=== PATIENT | female | born 1990 | race Native Hawaiian/Other Pacific Islander ===

== ENCOUNTER 2018-11-25 20:52 | Emergency (ER) | payer OTHER, SELFPAY ==
[2018-11-25 21:03] VITALS: BP 132/105; PULSE 106; RESP 21; TEMP 37.2; O2SAT 99; BMI 32.4
--- NOTE | 2018-11-25 21:36 | ED_ITS ---
HPI - Skin/Abscess/Foreign Bdy General Chief complaint: Skin/Abscess/Foreign Body Stated complaint: rash on right arm, spreading Time Seen by Provider: 11/25/18 21:14 Source: patient Mode of arrival: Ambulatory Limitations: no limitations History of Present Illness HPI narrative: 28-year-old female who approximately 1 week ago was and why a swimming when she felt a sting on her right hand. She is unsure exactly what happened. Did not see any aquatic life at the time. Since then has had increasing pain and irritation the right hand. States that over the past couple days at a seems to have moved up her right arm. No problems breathing. Has not tried anything for the symptoms prior to arrival. No fevers. States that it is extremely itchy. Related Data Previous Rx's Medication Instructions Recorded prednisone 40 mg PO DAILY 4 Days #8 tab 11/25/18 Allergies Allergy/AdvReac Type Severity Reaction Status Date / Time No Known Drug Allergies Allergy Verified 10/07/18 11:41 Review of Systems Constitutional Constitutional: Denies fever(s) Cardiovascular Cardiovascular: Denies chest pain and Denies dyspnea Respiratory Respiratory: Denies dyspnea Gastrointestinal Gastrointestinal: Denies abdominal pain Integumentary/Breasts Comments: Rash on the right hand and right arm Neurologic Comments: Tingling to right arm Hematologic/Lymphatic Hematologic/Lymphatic: Denies easy bleeding and Denies easy bruising [facility] Medical History Patient denies medical problems (Acute) Social History Smoking Status: Never smoker Social History Smoking Status: Never smoker Exam Initial Vital Signs Initial Vital Signs: Vital Signs Temperature 99.0 F 11/25/18 21:03 Pulse Rate 106 H 11/25/18 21:03 Respiratory Rate 21 11/25/18 21:03 Blood Pressure 132/105 H 11/25/18 21:03 Pulse Oximetry 99 11/25/18 21:03 Const General: cooperative, comfortable and well developed Orientation: alert, awake and oriented x3 HENMT Head: normal to inspection and normocephalic Resp Effort & Inspection: normal respiratory effort Auscultation: clear to auscultation bilaterally Cardio Rate: regular rate Rhythm: regular rhythm Pulses: radial pulses present on the right Skin Other: Patient with linear blisters mostly on the dorsum of the right hand and also extending up the volar aspect of the distal forearm. Patient also has 2 areas of urticaria on the right upper arm and 2 areas of urticaria on the right upper back. Neuro General: alert and awake Cognition: normal cognition Speech: speech normal Gait: normal gait Course Orders Ordered: Discontinued Medications Diphenhydramine HCl (Benadryl) 25 mg PO NOW ONE Stop: 11/25/18 21:33 Last Admin: 11/25/18 21:52 Dose: 25 mg Documented by: ALMA Lidocaine/Prilocaine (Lidocaine-Prilocaine Cream) 5 gm TOP NOW ONE Stop: 11/25/18 21:33 Last Admin: 11/25/18 21:51 Dose: 5 gm Documented by: ALMA Prednisone (Deltasone) 40 mg PO NOW ONE Stop: 11/25/18 21:33 Last Admin: 11/25/18 21:52 Dose: 40 mg Documented by: ALMA Vital Signs Vital signs: Vital Signs - 8 hr 11/25/18 21:03 11/25/18 22:08 Temperature 99.0 F Pulse Rate 106 H 78 Respiratory Rate 21 12 Blood Pressure 132/105 H Blood Pressure [Right Arm] 135/98 H Pulse Oximetry 99 100 MDM - Skin/Abscess/Foreign Bdy MDM Narrative Medical decision making narrative: The markings on the back of the right hand would be consistent with a jellyfish sting. They are in a linear format. The markings on her right distal forearm could also be related to this as well. However these did form a couple days after the lesions on the back of her right hand. There is no signs of a superficial cellulitis. She has no signs of an anaphylactic reaction. Will start the patient on prednisone. She was also given topical lidocaine cream. We also discussed the use of Benadryl. We will hold on further workup for now. I expect this will improve with the steroids. She was given return precautions and follow-up instructions. She expressed understanding and agreement with plan. Discharge Plan Departure Patient Disposition: Home Clinical Impression: Rash Discharge Date/Time: 11/25/18 22:09 Instructions: DI for Rash Activity Restrictions/Additional Instructions: You were given your 1st dose of steroids here in the emergency department. Your 2nd dose will be tomorrow 11/26/18. You can also take Benadryl which he can buy [id number] as directed. You can also use topical anti-itch cream. You can buy this [id number] as well. Contact your primary doctor tomorrow for follow-up. Return to the emergency department for any new or worsening symptoms Prescriptions: New prednisone 20 mg tablet 40 mg PO DAILY 4 Days Qty: 8 RF: 0
[2018-11-25] MEDS: LIDOCAINE/PRILOCAINE 5 GM TOP (21:51)
[2018-11-25] MEDS: diphenhydrAMINE 25 MG TABLET PO (21:52)
[2018-11-25] MEDS: predniSONE 20 MG TABLET 40 MG PO (21:52)
[2018-11-25 22:08] VITALS: BP 135/98; PULSE 78; RESP 12; O2SAT 100
== END 2018-11-25 22:09 | disposition home or self-care (01) ==
PROVIDERS: Emergency Provider Emergency Medicine
DX: R21 Rash and other nonspecific skin eruption (principal)
CPT/HCPCS: 99282; 99283

== ENCOUNTER → 2019-10-21 10:39 | Outpatient (CLI) | payer OTHER, SELFPAY ==
--- NOTE | 2019-10-21 | DI.US.S_ITS ---
PROCEDURE: US OB <= 14 WEEKS FETUS INDICATIONS: DATES OUTSIDE/PRIOR DATING DATA: Last menstrual period (LMP): 09/02/19. LMP-based estimated date of delivery (SOHAIL): 06/18/20 . First dating scan (date and location): 10/21/19, this study . Estimated date of delivery (SOHAIL) from first dating scan: 06/07/20 . TECHNIQUE: Real-time scanning was performed of the fetus and maternal pelvic organs, with image documentation. Endovaginal scanning was also performed to better visualize the fetus and maternal ovaries. COMPARISON: None. FINDINGS: Embryo: [place]-rump length 1.0 cm correlates with a gestational age of 7 weeks 1 day, +/-5 days. Heart rate 139 beats per minute is observed. There is a perigestational fluid collection measuring only 1.4 x 0.4 x 2.4 cm, likely a subchorionic small hemorrhage. Measurement variability in dating: +/- 4 weeks by LMP, +/- 7 days by mean sac diameter (use before 6 weeks gestation if crown-rump length not able to be measured), +/- 5 days by crown-rump length (up to 8 weeks 6 days gestation), +/- 7 days by crown-rump length (up to 13 weeks 6 days gestation). Maternal organs: Ovaries appear normal considering gestational status. Limited images through the kidneys demonstrate no hydronephrosis. IMPRESSION: Single living intrauterine gestation with current gestational age of 7 weeks 1 day and delivery date projected to be centered on 06/07/20, +/-5 days. Small perigestational hemorrhage incidentally noted as described above. Dictated by: Reji Muse M.D. on 10/21/2019 at 11:30 Approved by: Reji Muse M.D. on 10/21/2019 at 11:32
== END ==
PROVIDERS: Referring Provider Family Medicine; Visit Provider Family Medicine
DX: Z36.87 Encounter for antenatal screening for uncertain dates (principal); Z3A.01 Less than 8 weeks gestation of pregnancy
CPT/HCPCS: 76801; 76817

== ENCOUNTER → 2020-01-17 07:09 | Outpatient (CLI) | payer OTHER, SELFPAY ==
--- NOTE | 2020-01-17 | DI.US.S_ITS ---
PROCEDURE: US OB >= 14 WEEKS FETUS INDICATIONS: ANATOMY OUTSIDE/PRIOR DATING DATA: Last menstrual period (LMP): 09/02/2019. LMP-based estimated date of delivery (SOHAIL): 06/08/2020 . First dating scan (date and location): 10/21/2019 . Estimated date of delivery (SOHAIL) from first dating scan: 06/07/2020 . TECHNIQUE: Real-time scanning was performed of the fetus, with image documentation and biometric measurements. Endovaginal scanning: No COMPARISON: [facility], OB <= 14 WEEKS FETUS, 10/21/2019, 11:07. FINDINGS: General: A single living intrauterine gestation is present. Presentation: Transverse. Placenta: Placental position is anterior , without previa. Amniotic fluid index: 15.5 cm cm, normal range is 5-24 cm. heart rate: 144 beats per minute. Maternal cervical canal: 4.4 cm long. Normal lower limit is 2.5 cm. biometrics: Biparietal diameter: 19 weeks 5 Head circumference: 19 weeks 4 days Abdominal circumference: 20 weeks 4 days Femur length: 19 weeks 4 days Estimated gestational age from initial scan: 19 weeks 5 days Composite gestational age from present scan: 19 weeks 6 days Estimated weight and percentile: 329 g; 65th percentile Measurement variability for biometric dating: +/- 7 days from 14 weeks to 15 weeks 6 days gestation, +/- 10 days from 16 weeks to 21 weeks 6 days gestation, +/- 2 weeks from 22 weeks to 27 weeks 6 days gestation, +/- 3 weeks for 28 weeks gestation or later. weight reference: 4500 g or EFW >90/95% is considered macrosomia or large for gestational age. EFW <10% is small for gestational age. EFW 5% or less is considered intra-uterine growth restriction. Anatomic survey: Neuro: Ventricles are non-dilated at less than 10 mm. Cisterna magna is normal at 3-11 mm. Cerebellum is normal in size and morphology. Nuchal skin fold: Normal at less than 6 mm between 14-21 weeks gestational age. Face: Nose and lips, facial profile are normal. Spine: No evidence for spina bifida. Heart: 4-chambered heart is present, with normal ventricular outflow tracts. Diaphragm: Diaphragm is intact. Stomach: Left-sided stomach is present. Kidneys: No hydronephrosis. Normal is less than 5 mm in 2nd trimester, less than 7 mm in 3rd trimester. Cord: 3-vessel cord has orthotopic insertion. Bladder: Normal in size. Extremities: All 4 extremities identified. IMPRESSION: 1. Single living IUP redemonstrated and interval growth is normal. 2. Normal anatomic survey. Dictated by: Ruben Olmedo [facility] Interpreted: Curtis Mccoy MD on 01/17/2020 at 8:43 Approved by: Curtis Mccoy M.D. on 01/17/2020 at 9:02
== END ==
PROVIDERS: PCP Family Medicine; Referring Provider Family Medicine; Visit Provider Family Medicine
DX: Z36.89 Encounter for other specified antenatal screening (principal); Z3A.19 19 weeks gestation of pregnancy
CPT/HCPCS: 76811

== ENCOUNTER 2020-04-16 08:15 | Outpatient (RCR) | payer OTHER, SELFPAY ==
--- NOTE | 2020-04-10 16:00 | PT.OIE ---
Current Diagnoses Sacroiliitis, not elsewhere classified (04/10/20) Low back pain (04/10/20) Encounter for supervision of normal first , unspecified trimester (04/10/20) Past Medical History (Last Reviewed 11/26/18 @ 00:03 by Tao Benitez DO) Patient denies medical problems Visit Care Team Role Provider Type Rahel Rowell MD Attending Provider Physician Primary Care Provider Referring Provider Specialty: [facility] Address: [address] [place] [address], [facility] [place], [facility] Email: [email or web address] Physical Therapy Initial Evaluation PT-OP-A Visit Information Start: 04/10/20 13:25 Freq: Status: Active Protocol: Document 04/10/20 13:30 AMB (Rec: 04/10/20 15:43 AMB [id number]) Out-Patient Physical Therapy Visit Information Visit Information Visit Type Initial Evaluation Visit Start Time 13:30 Visit Stop Time 14:15 Total Visit Minutes 45 Visit Number 1 PT-OP-B Current Condition Start: 04/10/20 13:25 Freq: Status: Active Protocol: Document 04/10/20 13:33 AMB (Rec: 04/10/20 15:05 AMB [id number]) Current Condition History of Current Condition Onset Date Insidious onset over last few weeks Current Complaints Groin/back pain, L hip History of Current Condition Pain has been worsening over the past few weeks. Bad nausea, pain doesn't get better in bed. Maybe a little tingling in lower legs and feet - all over, not just posterior or anterior leg. Denies weakness. 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 Treatment Goals Patient/Caregiver Goals Sit<>stand goal- groin pain Prior Functional Status Baseline Function- ADL's Independent Baseline Function- Mobility Independent Current Functional Impairments (Reported) Functional Limitations- ADL's Pain with positional changes and extended standing Personal Factors Other Personal Factors That May Effect Currently , due 06/08/20 Therapy/Recovery , current BMI 35 PT-OP-C Subjective Start: 04/10/20 13:25 Freq: Status: Active Protocol: Document 04/10/20 13:30 AMB (Rec: 04/10/20 15:43 AMB [id number]) Patient Questionnaires Oswestry Low Back Index Oswestry Score 50 Oswestry Impairment 40 to 59% Impaired (Score 40- 59) PT-OP-G Mobility & Gait Start: 04/10/20 13:25 Freq: Status: Active Protocol: Document 04/10/20 13:30 AMB (Rec: 04/10/20 15:43 AMB [id number]) OP Mobility Evaluation Functional Movements Other Functional Movements Pain with sit to stand, bed mobility, shifting weight onto leg. OP Gait Assessment Comments Gait Comments decreased trunk rotation PT-OP-J Posture/Palpation/Skin Start: 04/10/20 13:25 Freq: Status: Active Protocol: Document 04/10/20 13:30 AMB (Rec: 04/10/20 15:43 AMB [id number]) Posture Evaluation Comments Posture Comments increased lumbar lordosis Palpation Assessment Location One Palpation Details no significant tenderness to palpation at lumbar spine, si joint, mild tenderness at adductors, mild over glut med, none over IT bands PT-OP-K Range of Motion Start: 04/10/20 13:25 Freq: Status: Active Protocol: Document 04/10/20 13:30 AMB (Rec: 04/11/20 11:43 AMB [id number]) Lumbar Spine Range of Motion Lumbar Spine Active Degrees Testing Position Standing Flexion 30 Extension 20 Lateral Flexion Left 15 Lateral Flexion Right 15 Comments pain in groin PT-OP-M Strength Start: 04/10/20 13:25 Freq: Status: Active Protocol: Document 04/10/20 13:30 AMB (Rec: 04/11/20 11:43 AMB [id number]) Hip Strength Hip Manual Muscle Testing Right Flexion (L2) 3 Fair Extension (S1) 3 Fair Abduction 3 Fair Adduction 3- Fair- Left Flexion (L2) 3 Fair Extension (S1) 3 Fair Abduction 3 Fair Adduction 3- Fair- Pain inhibits strength more than true neurological weakness PT-OP-Q Treatments Start: 04/10/20 13:25 Freq: Status: Active Protocol: Document 04/10/20 13:30 AMB (Rec: 04/11/20 11:43 AMB [id number]) Therapeutic Exercises Sitting Exercises 1 Sitting Exercise Name seated hip adduction (HEP) Side bilateral Reps/Minutes x5 Comments with TA and pelvic floor Other Exercises 3 Other Exercise Name rolo pose with knees apart Comments getting into position increased pain 2 Other Exercise Name pelvic circles on therapy ball Comments increased groin pain 1 Other Exercise Name quadruped TA/pelvic floor Comments increased groin pain to get into position PT-OP-T Assessment and Plan Start: 04/10/20 13:25 Freq: Status: Active Protocol: Document 04/10/20 13:30 AMB (Rec: 04/10/20 15:43 AMB [id number]) Physical Therapy Assessment Rehab Potential Rehabilitation Potential Fair Evaluation Complexity Number of Personal Factors/Comorbidities 1-2 Number of Body Systems Impaired 4 or More Clinical Presentation at Evaluation Evolving Impairments Impairments Functional Activities,Gait, Pain,Posture Goals One Impairment HEP Short Term Goal (STG) Aspen will be independent and consistent with a core stabilization HEP. STG Duration 4 weeks Two Impairment pain Short Term Goal (STG) Aspen will move from sit to stand with pain of 4/10 or less. STG Duration 4 weeks Windlasser Goal (LTG) Aspen will stand for 1 hour with pain of 4/10 or less. LTG Duration 8 weeks Assessment Summary Assessment Aspen attends PT with related low back pain and groin pain (round ligament pain?) that is limiting her ability to stand (back pain) and move from one position to the other (groin). We were unable to find a relieving position for her, as if one position felt good for her back it aggravated her groin and vice versa. She would benefit from stabilization exercises and a trial of an SI Belt, but progress may be limited due to her progresssing . Physical Therapy Plan Frequency and Duration Frequency of Treatment 2x/Week Duration of Treatment 6 weeks Plan of Care Start Date 04/10/19 Plan of Care End Date 05/22/20 Therapeutic Interventions Therapeutic Interventions Home Exercise Program,Manual Therapy,Neuromuscular Re- education,Self-Care/Home Management,Therapeutic Activities,Therapeutic Exercises Modalities Cold Pack/Ice Massage,Electric Stimulation,Hot Packs Next Visit Focus/Plan Next Note Type Treatment Note Next Visit Plan consider SI belt for pubic bone pain- stabilization with decreased positional changes to reduce increased pain
--- NOTE | 2020-04-10 16:00 | PT.OPPOC ---
Physical, Occupational & Speech Therapy At [facility] Current Diagnoses Sacroiliitis, not elsewhere classified (04/10/20) Low back pain (04/10/20) Encounter for supervision of normal first , unspecified trimester (04/10/20) Visit Care Team Role Provider Type Rahel Rowell MD Attending Provider Physician Primary Care Provider Referring Provider Specialty: [facility] Address: [address] [place] [address], [facility] [place], [facility] Email: [email or web address] Plan Of Care PT-OP-T Assessment and Plan Start: 04/10/20 13:25 Freq: Status: Active Protocol: Document 04/10/20 13:30 AMB (Rec: 04/10/20 15:43 AMB [id number]) Physical Therapy Assessment Rehab Potential Rehabilitation Potential Fair Evaluation Complexity Number of Personal Factors/Comorbidities 1-2 Number of Body Systems Impaired 4 or More Clinical Presentation at Evaluation Evolving Impairments Impairments Functional Activities,Gait, Pain,Posture Goals One Impairment HEP Short Term Goal (STG) Aspen will be independent and consistent with a core stabilization HEP. STG Duration 4 weeks Two Impairment pain Short Term Goal (STG) Aspen will move from sit to stand with pain of 4/10 or less. STG Duration 4 weeks Manager Respiratory Goal (LTG) Aspen will stand for 1 hour with pain of 4/10 or less. LTG Duration 8 weeks Assessment Summary Assessment Aspen attends PT with related low back pain and groin pain (round ligament pain?) that is limiting her ability to stand (back pain) and move from one position to the other (groin). We were unable to find a relieving position for her, as if one position felt good for her back it aggravated her groin and vice versa. She would benefit from stabilization exercises and a trial of an SI Belt, but progress may be limited due to her progresssing . Physical Therapy Plan Frequency and Duration Frequency of Treatment 2x/Week Duration of Treatment 6 weeks Plan of Care Start Date 04/10/19 Plan of Care End Date 05/22/20 Therapeutic Interventions Therapeutic Interventions Home Exercise Program,Manual Therapy,Neuromuscular Re- education,Self-Care/Home Management,Therapeutic Activities,Therapeutic Exercises Modalities Cold Pack/Ice Massage,Electric Stimulation,Hot Packs Next Visit Focus/Plan Next Note Type Treatment Note Next Visit Plan consider SI belt for pubic bone pain- stabilization with decreased positional changes to reduce increased pain Plan of Care Dates Plan of Care Start Date 04/10/19 Plan of Care End Date 05/22/20 Electronically Signed by: Rosa Maria Watts, PT 04/11/20 [id number] Please Sign and Return: I have reviewed this Plan of Care and certify that the skilled therapy services above are required to meet the patient?s needs. Physician Signature Date Printed Name and Credentials Clinical Instructor Signature Printed Name and Credentials
--- NOTE | 2020-04-16 09:05 | PT.OTN ---
Current Diagnoses Sacroiliitis, not elsewhere classified (04/16/20) Low back pain (04/16/20) Encounter for supervision of normal first , unspecified trimester (04/16/20) Physical Therapy Treatment Note PT-OP-A Visit Information Start: 04/10/20 13:25 Freq: Status: Active Protocol: Document 04/16/20 08:18 SP (Rec: 04/16/20 09:22 SP [id number]) Out-Patient Physical Therapy Visit Information Visit Information Visit Type Treatment Note Visit Note DALE Betts attended tx. 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 Bad nausea, pain doesn't get better in bed. Maybe a little tingling in lower legs and feet - all over, not just posterior or anterior leg. Denies weakness. 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 Treatment Goals Patient/Caregiver Goals Sit<>stand goal- groin pain Prior Functional Status Baseline Function- ADL's Independent Baseline Function- Mobility Independent Current Functional Impairments (Reported) Functional Limitations- ADL's Pain with positional changes and extended standing Personal Factors Other Personal Factors That May Effect Currently , due 06/08/20 Therapy/Recovery , current BMI 35 PT-OP-C Subjective Start: 04/10/20 13:25 Freq: Status: Active Protocol: Document 04/16/20 08:18 SP (Rec: 04/16/20 09:22 SP [id number]) OP-PT Subjective Patient Comments Patient Comments Pt reported having 4/10 groin pain upon arrival, demonstrated flexed B hips and knees with anterior pelvis tiltt posture with limited hip extesion. Patient Reported Progress Same PT-OP-G Mobility & Gait Start: 04/10/20 13:25 Freq: Status: Active Protocol: Document 04/10/20 13:30 AMB (Rec: 04/10/20 15:43 AMB [id number]) OP Mobility Evaluation Functional Movements Other Functional Movements Pain with sit to stand, bed mobility, shifting weight onto leg. OP Gait Assessment Comments Gait Comments decreased trunk rotation PT-OP-J Posture/Palpation/Skin Start: 04/10/20 13:25 Freq: Status: Active Protocol: Document 04/10/20 13:30 AMB (Rec: 04/10/20 15:43 AMB [id number]) Posture Evaluation Comments Posture Comments increased lumbar lordosis Palpation Assessment Location One Palpation Details no significant tenderness to palpation at lumbar spine, si joint, mild tenderness at adductors, mild over glut med, none over IT bands PT-OP-K Range of Motion Start: 04/10/20 13:25 Freq: Status: Active Protocol: Document 04/10/20 13:30 AMB (Rec: 04/11/20 11:43 AMB [id number]) Lumbar Spine Range of Motion Lumbar Spine Active Degrees Testing Position Standing Flexion 30 Extension 20 Lateral Flexion Left 15 Lateral Flexion Right 15 Comments pain in groin PT-OP-M Strength Start: 04/10/20 13:25 Freq: Status: Active Protocol: Document 04/10/20 13:30 AMB (Rec: 04/11/20 11:43 AMB [id number]) Hip Strength Hip Manual Muscle Testing Right Flexion (L2) 3 Fair Extension (S1) 3 Fair Abduction 3 Fair Adduction 3- Fair- Left Flexion (L2) 3 Fair Extension (S1) 3 Fair Abduction 3 Fair Adduction 3- Fair- PT-OP-Q Treatments Start: 04/10/20 13:25 Freq: Status: Active Protocol: Document 04/16/20 08:18 SP (Rec: 04/16/20 09:22 SP [id number]) Therapeutic Exercises Supine Exercises SKFO Side bilateral Reps/Minutes x3 Comments trialed, cued PPT but discomfort LS and over LE recruitment so stopped Sidelying Exercises clamshell Side bilateral Reps/Minutes 2x5 Comments good response pelvic tilt Sidelying Exercise Name PPT Reps/Minutes 5 sec hold x5 Comments good response Sitting Exercises pelvic tilt on canadian ball Sitting Exercise Name A, P, lateral Equipment Used mirror for posture feedback Reps/Minutes 5 sec hold x5 Comments small range, cued no slouching - good response 1 Sitting Exercise Name seated hip adduction (HEP) Side bilateral Reps/Minutes 2x5 Comments with TA and pelvic floor, neutral spine Self-Care/Home Management Treatment Education Patient Education Home Exercise Program,Pain Management,Posture Other Education Education on posture trunk alignment seated, sidelying w/ pillow alignment, manual STMs to proximal adductors and pelvic floor sustained compression and MWM contract/ relax against PF musculature to decrease tightness. PT-OP-T Assessment and Plan Start: 04/10/20 13:25 Freq: Status: Active Protocol: Document 04/16/20 08:18 SP (Rec: 04/16/20 09:22 SP [id number]) Physical Therapy Assessment Goals One Impairment HEP Short Term Goal (STG) Nishia will be independent and consistent with a core stabilization HEP. STG Duration 4 weeks Two Impairment pain Short Term Goal (STG) Nishia will move from sit to stand with pain of 4/10 or less. STG Duration 4 weeks Mobility Manager Goal (LTG) Nishia will stand for 1 hour with pain of 4/10 or less. LTG Duration 8 weeks Assessment Summary Assessment Pt reported pain mainly in supine assessment of PPT and SKTC fallout with challenge TA so changed to sidelying pelvic tilts and clamshell with good no pain response. Assessed in sitting on canadian ball pelvic tilts small range with no pain, required mirror and cuing for upright no slouching posture with improved self corrections. Provided pt hand outs for proper form and self recall. Pt demonstrated improved elevated posture and improved hip and knee extension when left today. Didn't ask pain scale rating at end of tx but pt reported activities did today were helpful. Unable to provide SI belt today due to not restocked yet. Physical Therapy Plan Frequency and Duration Frequency of Treatment 2x/Week Duration of Treatment 6 weeks Plan of Care Start Date 04/10/19 Plan of Care End Date 05/22/20 Therapeutic Interventions Therapeutic Interventions Home Exercise Program,Manual Therapy,Neuromuscular Re- education,Self-Care/Home Management,Therapeutic Activities,Therapeutic Exercises Modalities Cold Pack/Ice Massage,Electric Stimulation,Hot Packs Next Visit Focus/Plan Next Note Type Treatment Note Next Visit Plan Assess response to last tx: pelvic tilt, clamshell, seated SB pelvic tilt and HEP review . Continue per PT POC: consider SI belt for pubic bone pain- stabilization with decreased positional changes to reduce increased pain
--- NOTE | 2020-05-13 13:08 | PT.OPDS ---
Current Diagnoses Sacroiliitis, not elsewhere classified (04/16/20) Low back pain (04/16/20) Encounter for supervision of normal first , unspecified trimester (04/16/20) Visit Care Team Role Provider Type Rahel Rowell MD Attending Provider Physician Primary Care Provider Referring Provider Specialty: Family Practice Address: [address] [place] [address], [facility] [place] [place], [facility] Email: [email or web address] Visit Number Visit Number 2 Discharge Summary PT-OP-B Current Condition Start: 04/10/20 13:25 Freq: Status: Active Protocol: Document 04/10/20 13:33 AMB (Rec: 04/10/20 15:05 AMB [id number]) Current Condition History of Current Condition Onset Date Insidious onset over last few weeks Current Complaints Groin/back pain, L hip History of Current Condition Pain has been worsening over the past few weeks. Bad nausea, pain doesn't get better in bed. Maybe a little tingling in lower legs and feet - all over, not just posterior or anterior leg. Denies weakness. 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 Treatment Goals Patient/Caregiver Goals Sit<>stand goal- groin pain Prior Functional Status Baseline Function- ADL's Independent Baseline Function- Mobility Independent Current Functional Impairments (Reported) Functional Limitations- ADL's Pain with positional changes and extended standing Personal Factors Other Personal Factors That May Effect Currently , due 06/08/20 Therapy/Recovery , current BMI 35 PT-OP-C Subjective Start: 04/10/20 13:25 Freq: Status: Active Protocol: Document 04/16/20 08:18 SP (Rec: 04/16/20 09:22 SP [id number]) OP-PT Subjective Patient Comments Patient Comments Pt reported having 4/10 groin pain upon arrival, demonstrated flexed B hips and knees with anterior pelvis tiltt posture with limited hip extesion. Patient Reported Progress Same PT-OP-G Mobility & Gait Start: 04/10/20 13:25 Freq: Status: Active Protocol: Document 04/10/20 13:30 AMB (Rec: 04/10/20 15:43 AMB [id number]) OP Mobility Evaluation Functional Movements Other Functional Movements Pain with sit to stand, bed mobility, shifting weight onto leg. OP Gait Assessment Comments Gait Comments decreased trunk rotation PT-OP-J Posture/Palpation/Skin Start: 04/10/20 13:25 Freq: Status: Active Protocol: Document 04/10/20 13:30 AMB (Rec: 04/10/20 15:43 AMB [id number]) Posture Evaluation Comments Posture Comments increased lumbar lordosis Palpation Assessment Location One Palpation Details no significant tenderness to palpation at lumbar spine, si joint, mild tenderness at adductors, mild over glut med, none over IT bands PT-OP-K Range of Motion Start: 04/10/20 13:25 Freq: Status: Active Protocol: Document 04/10/20 13:30 AMB (Rec: 04/11/20 11:43 AMB [email or web address]) Lumbar Spine Range of Motion Lumbar Spine Active Degrees Testing Position Standing Flexion 30 Extension 20 Lateral Flexion Left 15 Lateral Flexion Right 15 Comments pain in groin PT-OP-M Strength Start: 04/10/20 13:25 Freq: Status: Active Protocol: Document 04/10/20 13:30 AMB (Rec: 04/11/20 11:43 AMB [id number]) Hip Strength Hip Manual Muscle Testing Right Flexion (L2) 3 Fair Extension (S1) 3 Fair Abduction 3 Fair Adduction 3- Fair- Left Flexion (L2) 3 Fair Extension (S1) 3 Fair Abduction 3 Fair Adduction 3- Fair- PT-OP-T Assessment and Plan Start: 04/10/20 13:25 Freq: Status: Active Protocol: Document 05/13/20 13:06 AMB (Rec: 05/13/20 13:08 AMB [email or web address]) Physical Therapy Plan Discharge Physical Therapy Discharge Reasons No Longer Attending PT Discharge Comments Pt attended 2 visits of physical therapy, canceled her last appointment and then has not scheduled any more appointments, she continued to have pain at her last treatment session, and is discharged now due to no longer attending PT.
== END 2020-05-29 10:51 ==
LOC: PHYS 08:15
PROVIDERS: PCP Family Medicine; Referring Provider Family Medicine; Visit Provider Family Medicine
DX: M54.5 Low back pain (principal); Z34.00 Encounter for supervision of normal first pregnancy, unspecified trimester; M46.1 Sacroiliitis, not elsewhere classified
CPT/HCPCS: 97110; 97162; 97535

== ENCOUNTER 2020-05-12 15:51 | Outpatient (CLI) | payer OTHER, SELFPAY ==
[2020-05-12 16:25] LABS: Add Manual Diff / Slide Review NO; Basophils Absolute Auto 0 /uL (0-100); Basophils Percent Auto 0.5 % (0-2); Eosinophils Absolute Auto 0 /uL (0-450); Eosinophils Percent Auto 0.3 % (2-4); Hematocrit 37.4 % (36-46); Lymphocytes Absolute Auto 1600 /uL (1100-4500); Lymphocytes Percent Auto 16.8 % (25-40); Mean Corpuscular HGB Conc 32.2 % (30-36); Mean Corpuscular Volume 83.7 fL (80-100); Monocytes Absolute Auto 500 /uL (0-900); Monocytes Percent Auto 5.6 % (3-14); Neutrophils Absolute Auto 7100 /uL (1500-7000); Neutrophils Percent Auto 76.8 % (50-75); Platelet Count 383 X10^3/uL (150-400); Red Blood Cell Count 4.47 X10^6/uL (4.0-5.2); Red Cell Distribution Width 13.2 % (11.6-14.8); White Blood Cell Count 9.2 X10^3/uL (4.5-11.0)
[2020-05-12 16:37] LABS: Alanine Aminotransferase 12 IU/L (<35); Albumin 4.1 g/dL (3.5-5.0); Albumin Globulin Ratio 1.1 (1.0-2.8); Alkaline Phosphatase 90 U/L (38-126); Aspartate Aminotransferase 19 IU/L (14-36); BUN Creatinine Ratio 21.2 (6-22); Bilirubin Total 0.2 mg/dL (0.2-1.3); Blood Urea Nitrogen 11 mg/dL (7-17); Calcium 9.8 mg/dL (8.4-10.2); Carbon Dioxide 23 mmol/L (22-32); Chloride 104 mmol/L (98-107); Estimated Glomerular Filt Rate > 60.0 mL/min (>60); Globulin 3.6 g/dL (1.7-4.1); Glucose 123 mg/dL (70-100); HEMOLYSIS < 15 (0-50); Potassium 3.7 mmol/L (3.4-5.1); Sodium 133 mmol/L (137-145); Total Protein 7.7 g/dL (6.3-8.2); Uric Acid 4.1 mg/dL (2.5-6.2)
== END 2020-05-12 16:51 | disposition home or self-care (01) ==
LOC: LABOR 16:58 → OB 05-13 06:47
PROVIDERS: PCP Family Medicine; Referring Provider Family Medicine; Visit Provider Family Medicine
DX: O14.93 Unspecified pre-eclampsia, third trimester (principal); O42.913 Preterm premature rupture of membranes, unspecified as to length of time between rupture and onset of labor, third trimester; Z3A.36 36 weeks gestation of pregnancy
CPT/HCPCS: 36415; 59025; 80053; 84112; 84443; 84550; 85025; 87081; G0378; G0379

== ENCOUNTER → 2020-05-12 16:21 | Outpatient (ROUT) | payer OTHER, SELFPAY | PROVIDERS: PCP Family Medicine; Visit Provider Family Medicine | DX: Z34.00 Encounter for supervision of normal first pregnancy, unspecified trimester (principal) | CPT/HCPCS: 87081 ==

== ENCOUNTER → 2020-05-29 14:37 | Outpatient (CLI) | payer OTHER, SELFPAY ==
--- NOTE | 2020-05-29 14:39 | DI.US.S_ITS ---
PROCEDURE: US OB LIMITED INDICATIONS: SIZE GREATER THEN DATES OUTSIDE/PRIOR DATING DATA: Last menstrual period (LMP): 09/02/2019 . LMP-based estimated date of delivery (SOHAIL): 06/18/2020 . First dating scan (date and location): 10/21/2019 . Estimated date of delivery (SOHAIL) from first dating scan: 06/07/2020 . TECHNIQUE: Real-time scanning was performed of the fetus, with image documentation. COMPARISON: None. FINDINGS: A single living intrauterine gestation is present. Presentation: Vertex Placenta: Placental position is anterior , without previa. Amniotic fluid index: 12.6 cm, normal range is 5-24 cm. heart rate: 145 beats per minute. Estimated gestational age from initial scan: 38 weeks 5 days. Estimated gestational age from today's ultrasound: 38 weeks 6 days Estimated weight 3753 grams, 81st percentile IMPRESSION: 1. Congruent size and dates. 2. Estimated weight = 3753 grams, 81st percentile. 3. Normal JACK. Dictated by: Ron Fischer M.D. on 05/29/2020 at 16:30 Approved by: Ron Fischer M.D. on 05/29/2020 at 16:36
== END ==
PROVIDERS: PCP Family Medicine; Referring Provider Family Medicine; Visit Provider Family Medicine
DX: Z36.88 Encounter for antenatal screening for fetal macrosomia (principal); Z3A.38 38 weeks gestation of pregnancy
CPT/HCPCS: 76815

== ENCOUNTER 2020-06-04 09:17 | Inpatient (IN) | payer OTHER, SELFPAY ==
[2020-06-04 10:56] LABS: Add Manual Diff / Slide Review NO; Basophils Absolute Auto 100 /uL (0-100); Basophils Percent Auto 0.9 % (0-2); Eosinophils Absolute Auto 0 /uL (0-450); Eosinophils Percent Auto 0.4 % (2-4); Hematocrit 37.9 % (36-46); Hemoglobin 12.2 g/dL (12.0-16.0); Lymphocytes Absolute Auto 1600 /uL (1100-4500); Lymphocytes Percent Auto 17.8 % (25-40); Mean Corpuscular HGB Conc 32.1 % (30-36); Mean Corpuscular Hemoglobin 27.2 PG (26-34); Mean Corpuscular Volume 84.7 fL (80-100); Monocytes Absolute Auto 600 /uL (0-900); Monocytes Percent Auto 6.4 % (3-14); Neutrophils Absolute Auto 6500 /uL (1500-7000); Neutrophils Percent Auto 74.5 % (50-75); Platelet Count 340 X10^3/uL (150-400); Red Blood Cell Count 4.47 X10^6/uL (4.0-5.2); Red Cell Distribution Width 13.9 % (11.6-14.8); White Blood Cell Count 8.7 X10^3/uL (4.5-11.0)
[2020-06-04 11:35] LABS: COVID19 - ADMIT (NP swab/PCR) Negative (Negative)
--- NOTE | 2020-06-04 11:49 | P.HPOB_ITS ---
OB HPI Date/Time Date of admission: 06/04/20 Date Patient Seen: 06/04/20 Time Patient Seen: 11:49 History of Present Condition Chief complaint: NST Narrative: Aspen Solis is a 29 year old at 39w4d with SOHAIL of 06/07/20 per first trimester ultrasound. She presents with leaking fluid that started last night at around 2 am. Got up to go to the bathroom and felt more wetness than usual, cleaned herself up and then felt more wetness again at around 8 am and then came in to be evaluated. AmniSure positive. She is not having regular contractions and is comfortable. Her course has been complicated by GERD treated with famotidine and esomeprazole and 1 episode of hypertension at 36 weeks while at work. After resting, blood pressure resolved, PIH labs and and NST were within normal limits. She has been on reduced work hours since that time with no further episodes of high blood pressure. LABS/IMAGING: ABO O positive, antibody negative on 10/27/20. Rubella immune. Hepatitis-B s urface antigen negative. HIV, HSV 1 and 2 negative. Treponemal antibody negative. Varicella titer positive. Pap smear reportedly negative on 09/2019. Urine culture negative on 11/11/20. Hemoglobin/hematocrit 13.3/40.4 on 10/28/19. Repeat hemoglobin/hematocrit 12.0/37.4 on 05/12/20. TSH within normal limits. 1 hour Glucola negative on 03/12/20. GBS negative on 05/12/20. NIPT negative, female. 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 No alcohol, drugs, or tobacco. Evaluation Evaluation Laboratory results: Laboratory Tests 06/04/20 06/04/20 06/04/20 10:20 10:51 10:51 WBC 8.7 RBC 4.47 Hgb 12.2 Hct 37.9 MCV 84.7 MCH 27.2 MCHC 32.1 RDW 13.9 Plt Count 340 Neut % (Auto) 74.5 Lymph % (Auto) 17.8 L [place] % (Auto) 6.4 Eos % (Auto) 0.4 L Baso % (Auto) 0.9 Neut # (Auto) 6500 Lymph # (Auto) 1600 [place] # (Auto) 600 Eos # (Auto) 0 Baso # (Auto) 100 SARS-CoV-2 (PCR) Negative Blood Type O Positive Antibody Screen Negative [facility] Medical History (Updated 08/29/19 @ 17:17 by Perla Zarate PA-C) Patient denies medical problems Social History Smoking Status: Never smoker Meds Home Medications and Allergies Home Medications Medication Instructions Recorded Confirmed Type hydroxyzine HCl 25 mg tablet 25 mg PO TID PRN #30 tab 06/14/19 06/04/20 Rx Allergies Allergy/AdvReac Type Severity Reaction Status Date / Time No Known Drug Allergies Allergy Verified 08/29/19 16:07 Review of Systems Review of Systems ROS: Yes All systems reviewed with the patient and are negative except as otherwise documented Exam Narrative Exam Narrative: General: NAD Skin: Color unremarkable, no rash nor lesions HEENT: Neck supple with midline trachea Lungs: CTAB Heart: Normal rate, and regular rhythm, S1, S2 normal, no murmur, click, rub or gallop Abdomen: Gravid, soft, non-tender Extremities: No clubbing, no edema, no cyanosis Pelvis: Normal female external genitalia Presentation: vertex Cervix: FT/30/0/soft/mid Monitoring: Variability: Moderate Baseline: 145s Accelerations: Present Decelerations: Absent Contractions: Every 3-7 minutes Strength: Mild Objective Labs Result Diagrams: 06/04/20 10:51 Labs: Laboratory Results - last 24 hr 06/04/20 06/04/20 06/04/20 10:20 10:51 10:51 WBC 8.7 RBC 4.47 Hgb 12.2 Hct 37.9 MCV 84.7 MCH 27.2 MCHC 32.1 RDW 13.9 Plt Count 340 Neut % (Auto) 74.5 Lymph % (Auto) 17.8 L [place] % (Auto) 6.4 Eos % (Auto) 0.4 L Baso % (Auto) 0.9 Neut # (Auto) 6500 Lymph # (Auto) 1600 [place] # (Auto) 600 Eos # (Auto) 0 Baso # (Auto) 100 SARS-CoV-2 (PCR) Negative Blood Type O Positive Antibody Screen Negative Assessment and Plan Assessment and Plan Assessment and Plan narrative: 1. IUP at 39w4d 2. 3. PROM Plan: Admit to OB with routine labor orders. Will start augmentation with Pitocin to help get patient into a good contraction pattern. Anticipate .
[2020-06-04 13:20] VITALS: BP 125/82
[2020-06-04] MEDS: LACTATED RINGERS 1,000 ML 100 ML IV ×2 (13:26→15:41)
[2020-06-04] MEDS: OXYTOCIN PREMIX 30 UNIT/500 ML PLAST..BAG 200 UNIT IV (14:01)
--- NOTE | 2020-06-04 17:31 | PM.OBPNLAB ---
Date/Time Date Patient Seen: 06/04/20 Time Patient Seen: 17:31 Pain Control Pain control: tolerating well Comments: Patient is feeling well. Pitocin started at approximately 14:00 at 2 units and was eventually titrated up to 4 units. Due to rise in baseline into the low 160s and frequency of contractions that were too close, pitocin was turned down to 3 units and mother is now magdalena approximately every 2 and half to 3 minutes and tolerating them well with little discomfort. heart rate back into the 150s with moderate variability and accelerations. Mother has been ambulating almost the entire afternoon and compliant with all cares. She did have something to eat, no nausea. Nursing reports that she has been afebrile. Pelvic Exam Comments: FT with funnelling/30/0/mid/soft Contractions Contractions on admission: regular Monitor mode: External Pitocin rate (mU/min): 3 Contraction frequency (min): 3 Contraction duration (min): 1 Contraction pattern: Regular Contraction intensity: Moderate Status Heart Rate Baseline: 150 Monitor Accelerations: Present Monitor Decelerations: Absent Monitor Variability: Moderate Assessment and Plan Plan: continuous present management Comments: 1. IUP at 39w4d 2. 3. PROM x 13 hours Patient has made very little cervical change with pitocin and both mother and fetus were unable to tolerate 4 units without tacysystole and a rising heart rate, both of which resolved after reducing the pitocin back to 3 units. PLAN: 1. Will switch to Cytotec at this point to help with ripening and monitor temperatures every 1 hour. 2. Anticipate that we will need to go longer than 24 hours to support patient in a vaginal delivery. She is a reasonable candidate for this as she is otherwise healthy, GBS negative, and has had an uncomplicated . She is a non-smoker. US six days prior to presentation revealed a normal JACK, EFW, growth, and cephalic presentation. Plan will be to ripen her with cytotec while carefully monitoring her vital signs and start pitocin once her cervix is favorable. Hopeful for . 3. Will consider prophylactic antibiotics at 24 hours to reduce risk of chorioamniotis if not delivered.
[2020-06-04] MEDS: miSOPROStoL 25 MCG TABLET PO (20:18)
--- NOTE | 2020-06-04 22:03 | PM.OBPNLAB ---
Date/Time Date Patient Seen: 06/04/20 Time Patient Seen: 22:03 Pain Control Pain control: tolerating well Comments: Cytotec placed at 8:20 p.m. Patient has been resting, denies pain, doing well. Nursing reports that mother has been afebrile. heart rate remains in the 150s with good accelerations and moderate variability. Contractions Monitor mode: External Contraction frequency (min): 5 Contraction duration (min): 1 Contraction pattern: Regular Contraction intensity: Moderate Status status: Category ll Heart Rate Baseline: 155 Monitor Accelerations: Present Monitor Decelerations: Absent Monitor Variability: Moderate Assessment and Plan Comments: 1. IUP at 39w4d 2. 3. PROM x 20 hours PLAN: Will continue with Cytotec placement every 4 hours throughout the night and plan for Pitocin augmentation in the morning if cervix is ripe. Will increase cytotec dose from 25 to 50 mcg at next dose. Patient is completely comfortable at time of interview so cervical change unlikely; will hold off on cervical exams throughout the night to reduce her risk of infection. Will continue to closely monitor maternal temperature and heart rate as well as heart rate. Will proceed with prophylactic ampicillin and gentamicin at 24 hours of PROM to reduce risk of chorioamnionitis and check CBC to check trend and to support ongoing trial of labor. Plan for cervical check in the morning.
[2020-06-05] MEDS: miSOPROStoL 25 MCG TABLET 50 MCG PO ×2 (00:30→04:33)
[2020-06-05] MEDS: SODIUM CHLORIDE 0.9% IV (02:47)
[2020-06-05] MEDS: GENTAMICIN IV (02:47)
[2020-06-05 03:18] LABS: Add Manual Diff / Slide Review NO; Basophils Absolute Auto 100 /uL (0-100); Basophils Percent Auto 1.3 % (0-2); Eosinophils Absolute Auto 100 /uL (0-450); Eosinophils Percent Auto 0.8 % (2-4); Hematocrit 35.7 % (36-46); Hemoglobin 11.3 g/dL (12.0-16.0); Lymphocytes Absolute Auto 2100 /uL (1100-4500); Lymphocytes Percent Auto 23.4 % (25-40); Mean Corpuscular HGB Conc 31.7 % (30-36); Mean Corpuscular Hemoglobin 26.6 PG (26-34); Monocytes Absolute Auto 900 /uL (0-900); Monocytes Percent Auto 9.4 % (3-14); Neutrophils Absolute Auto 5900 /uL (1500-7000); Neutrophils Percent Auto 65.1 % (50-75); Platelet Count 301 X10^3/uL (150-400); Red Blood Cell Count 4.25 X10^6/uL (4.0-5.2); Red Cell Distribution Width 14.1 % (11.6-14.8); White Blood Cell Count 9.1 X10^3/uL (4.5-11.0)
[2020-06-05] MEDS: AMPICILLIN 2,000 MG in SODIUM CHLORIDE 0.9% 100 ML 200 ML IV ×2 (04:17→18:32)
--- NOTE | 2020-06-05 08:04 | P.PN_ITS ---
Subjective Subjective Date Patient Seen: 06/05/20 Time Patient Seen: 08:04 Objective Labs Result Diagrams: 06/05/20 03:05 Labs: Laboratory Results - last 24 hr 06/04/20 06/04/20 06/04/20 10:20 10:51 10:51 WBC 8.7 RBC 4.47 Hgb 12.2 Hct 37.9 MCV 84.7 MCH 27.2 MCHC 32.1 RDW 13.9 Plt Count 340 Neut % (Auto) 74.5 Lymph % (Auto) 17.8 L [place] % (Auto) 6.4 Eos % (Auto) 0.4 L Baso % (Auto) 0.9 Neut # (Auto) 6500 Lymph # (Auto) 1600 [place] # (Auto) 600 Eos # (Auto) 0 Baso # (Auto) 100 SARS-CoV-2 (PCR) Negative Blood Type O Positive Antibody Screen Negative 06/05/20 03:05 WBC 9.1 RBC 4.25 Hgb 11.3 L Hct 35.7 L MCV 84.0 MCH 26.6 MCHC 31.7 RDW 14.1 Plt Count 301 Neut % (Auto) 65.1 Lymph % (Auto) 23.4 L [place] % (Auto) 9.4 Eos % (Auto) 0.8 L Baso % (Auto) 1.3 Neut # (Auto) 5900 Lymph # (Auto) 2100 [place] # (Auto) 900 Eos # (Auto) 100 Baso # (Auto) 100 SARS-CoV-2 (PCR) Blood Type Antibody Screen [facility] Medical History (Updated 08/29/19 @ 17:17 by Perla Zarate PA-C) Patient denies medical problems Social History Smoking Status: Never smoker
--- NOTE | 2020-06-05 08:05 | PM.OBPNLAB ---
Date/Time Date Patient Seen: 06/05/20 Time Patient Seen: 08:05 Pain Control Pain control: tolerating well Pelvic Exam Dilation (cm): 1 Effacement (%): 60 station: -1 Amniotic membrane status: Ruptured Contractions Contractions on admission: irregular Monitor mode: External Contraction frequency (min): 5 Contraction pattern: Regular Contraction intensity: Moderate Status status: Category ll Assessment and Plan Assessment: induction ongoing Comments: Overall doing well. Rupture greater than 36 hours. On antibiotics. No evidence of fever. Pitocin started today. Need to have some cervical change. Question will be whether not need to proceed operative delivery depending on results over the course of today.. Discussed with both her and 's questions answered.
[2020-06-05] MEDS: LACTATED RINGERS 1,000 ML 100 ML IV (08:24)
[2020-06-05] MEDS: OXYTOCIN PREMIX 30 UNIT/500 ML PLAST..BAG 200 UNIT IV (09:09)
--- NOTE | 2020-06-05 13:17 | PM.OBPNLAB ---
Date/Time Date Patient Seen: 06/05/20 Time Patient Seen: 12:30 Pelvic Exam Dilation (cm): 1 Effacement (%): 60 station: -1 Amniotic membrane status: Ruptured Contractions Contractions on admission: regular Monitor mode: External Contraction frequency (min): 5 Contraction pattern: Regular Contraction intensity: Moderate Status status: Category l Assessment and Plan Assessment: induction ongoing Comments: Not a lot of change but really just started getting more active contractions will see what the next 3-5 hours does. If we have absolutely no cell changer that time will need to consider operative therapy. Discussed with patient and . They understand. Otherwise no evidence of fever. Will continue antibiotics
[2020-06-05 14:37] VITALS: TEMP 36.7
[2020-06-05] MEDS: fentaNYL 100 MCG/2 ML INJ 50 MCG IV (14:37)
--- NOTE | 2020-06-05 17:49 | P.PNOB_ITS ---
Date/Time Date Patient Seen: 06/05/20 Time Patient Seen: 17:51 Pain Control Pain control: epidural Comments: Epidural not perfect hoping to get better control Pelvic Exam Dilation (cm): 1 Effacement (%): 60 station: -1 Amniotic membrane status: Ruptured Contractions Contractions on admission: regular Monitor mode: External Pitocin rate (mU/min): 13 Contraction frequency (min): 3 Contraction pattern: Regular Contraction intensity: Moderate Status status: Category ll Assessment and Plan Assessment: induction ongoing Plan: continuous present management Comments: Patient with minimal change although is descended into pelvis. No fever. heart monitor shows category 2 there is some flattening of the reactivity occasionally but otherwise has good reactivity. Baseline continues to be stable. No fever. We discussed case with patient and . 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 Impact some both mom and baby. Both now and in the future. After discussion they would like to continue on current course and re-evaluate. Certainly if not anything in the morning will need to consider operative delivery and they understand this. We will continue Pitocin unless something changes.
--- NOTE | 2020-06-05 20:34 | PM.OBPNLAB ---
Date/Time Date Patient Seen: 06/05/20 Time Patient Seen: 20:34 Pain Control Pain control: epidural (Not tolerating well secondary to decreased effectiveness of epidural) Pelvic Exam Dilation (cm): 6 Effacement (%): 30 station: -1 Amniotic membrane status: Ruptured Contractions Contractions on admission: regular Monitor mode: External Pitocin rate (mU/min): 0 Contraction frequency (min): 3 Contraction pattern: Regular Contraction intensity: Moderate Status status: Category ll Monitor Decelerations: Variable Comments: Patient with periods of pretty significant absence of any variability. Does have intermittent small periods of activity Assessment and Plan Comments: Was called to evaluate patient secondary to decreased heart variability. Strip was relatively flat. Has had some change intermittently but still overall decreased variability. Some variables. Patient with pain control which is not adequate at this time. No fevers. Discussed with both E thin and patient. Discussed my concern that appears to be occiput posterior were 6 cm heart monitor is not comforting and we still have quite a ways to go. Given the fact that she is having increasingly difficulty dealing with labor and length of rupture decision was made for operative delivery emergently. Crew was called. Patient understands consent was signed we discussed infection bleeding injury to bladder or bowel injury to uterus injury to fetus need for transfusion hysterectomy and potentially . Questions were answered.
--- NOTE | 2020-06-05 21:00 | PM.PREOP ---
Pre-operative Note COVID-19 COVID-19 status: Negative Interval Note History & Physical reviewed/Exam performed by Physician: Yes Changes to H&P: Yes H&P completed within 30 days and has changed as indicated here:: Done yesterday by Dr. song ASA Class (for procedural sedation): II
[2020-06-05] MEDS: CEFOTETAN 2 GM in SODIUM CHLORIDE 0.9% 100 ML 200 ML IV (21:21)
--- NOTE | 2020-06-05 21:37 | SUR.OPER ---
Supine on Padded OR bed, head on pillow, safety belt at thigh, arms secured on padded arm boards at <90 degrees abduction. Bump under right buttock. Legs uncrossed with pillow under knees, gel pad to heels, tape over blanket to lower legs.
--- NOTE | 2020-06-05 21:56 | SUR.OPER ---
Addendum entered by Munir Kraft R.N. 06/05/20 21:58: with OB RN Original Note: viable baby girl 2140, placenta delivered at 2144, 7/8 placenta and cord blood sent to OB henriquez
[2020-06-05 22:38] VITALS: BP 107/62; PULSE 103; RESP 15; TEMP 36.9; O2SAT 96
[2020-06-05 22:44] VITALS: BP 100/62; PULSE 102; RESP 13; O2SAT 95
[2020-06-05 22:49] VITALS: BP 114/71; PULSE 99; RESP 15; O2SAT 97
[2020-06-05 22:56] VITALS: BP 112/71; PULSE 98; RESP 16; TEMP 36.9; O2SAT 97
--- NOTE | 2020-06-05 22:57 | P.OP_ITS ---
Operative Date/Time/Diagnoses Date of procedure: 06/05/20 Time of procedure: 22:57 Pre-op diagnosis: distress Post-op diagnosis: same Procedure & Clinicians Procedure: Primary low-transverse section Same procedure as scheduled: Yes Indications: See H& P but patient was ruptured 48 hours had increasingly flat heart monitor. Poor pain control and no evidence of infection. Surgeon: Curtis Bender Senior Network Systems Engineer: Scott Steen Click Yes if Unassisted: No Anesthesia Type: Epidural Operative Notes Findings: Viable female Apgars 8 and 9 left occiput transverse weight 9 lb 3 oz. No resuscitation. Normal pelvic organs. Closure Type: primary Specimen(s): other Applied: catheter Estimated Blood Loss (mL): 400 Blood products transfused: none Procedure in detail: Followed appropriate protocols in the OR including scopes. Patient presented to Labor and delivery approximately 44 hours prior to transfer to OR. She was consented in her room and brought to the operative theater. She was placed on the operative table supine with edge. Prepped and draped in the usual manner. Epidural was used as anesthesia with excellent results. Pfannenstiel incision was then made with sharp dissection down to the fascia. Fascia was scored in the midline. A 2 bleeders 1 in the right middle subcutaneous which was cauterized and 1 in the right lateral side with skin edge which was cauterized. Fascia was then incised with curved scissors. And extended laterally under direct visualization. Co cores were then used to grasp the superior aspect of the incision and raise superiorly. Blunt dissection was used to elevate off the muscle layer. Midline was sharply incised. This was repeated inferiorly without complications. The midline was then identified and blunt dissection was used to separate the muscle layer and identify the peritoneum which was bluntly entered without complication extended. Bladder blade was then placed. Bladder flap was then developed without complications and bladder blade was placed into the bladder flap. A low transverse incision was then made on the uterus scored a crossed and then with sharp dissection down to the mid middle with clear fluid identified. It was then extended laterally bluntly. Baby's head was slightly down into the pelvis was left occiput transverse and was with some difficulty grabbed and then did delivered easily. No nuchal cord. Cord was clamped and child was crying immediately. Bulb suctioned and then handed off to waiting pediatric nurse cord bloods were obtained. Placenta was then delivered manually. There was moderate amount of of the sac which was had to be removed with ring forceps. Culture of placenta was then done. Wet lap sponge was then used to swipe the inside of the uterine contents x2 with excellent results. Minimal bleeding. Uterus was somewhat boggy and Pitocin and Methergine was given with excellent results. Cores the uterine incision on the grasped with ring forceps along with inferior aspect. A ring forceps was passed into the vagina and handed off the operative theater. The uterine incision was then closed with running 0 chromic locked. A 2nd 0 chromic imbricating stitch was then used to close. Excellent results except for the right corner which had a persistent area of bleeding. Two [id number] sutures were placed with good results except 1 small area and a 2nd just regular suture was used. Irrigation was then done re-evaluated incision appeared to be dry. Bladder flap was then closed with running 3-0 Vicryl. Perineum was then closed with running 2 0 Vicryl. Two 2-0 interrupted sutures were used to approximate the muscle layer. Fascia was closed with running 0 chromic. Irrigation was done to the subcutaneous tissue no bleeding was noted. Three 3-0 Vicryl interrupted sutures used to approximate the subcutaneous tissue incision was closed with running 4-0 subcuticular suture. Steri-Strips and dressing were applied. EBL less than 400 cc. Mother and infant are in stable condition. All sponge instrument and needles were correct Complications: none Post-operative Condition: stable Plan for aftercare: Admission to Labor and delivery
--- NOTE | 2020-06-05 23:18 | SUR.PHASEI ---
Stable PACU stay, tolerated ice chips, report called to francis Evans transported to room in and left in stable condition.
[2020-06-05] MEDS: DEXTROSE 5%-LACTATED RINGERS 1,000 ML 125 ML IV (23:37)
[2020-06-06] MEDS: diphenhydrAMINE 50 MG/ML VIAL (02:04)
[2020-06-06] MEDS: KETOROLAC 30 MG/ML VIAL IV ×2 (06:29→13:15)
[2020-06-06 06:33] LABS: Add Manual Diff / Slide Review NO; Basophils Absolute Auto 100 /uL (0-100); Basophils Percent Auto 0.9 % (0-2); Eosinophils Absolute Auto 100 /uL (0-450); Eosinophils Percent Auto 0.4 % (2-4); Hematocrit 32.2 % (36-46); Hemoglobin 10.4 g/dL (12.0-16.0); Lymphocytes Absolute Auto 1600 /uL (1100-4500); Lymphocytes Percent Auto 11.1 % (25-40); Mean Corpuscular HGB Conc 32.4 % (30-36); Mean Corpuscular Volume 83.4 fL (80-100); Monocytes Absolute Auto 800 /uL (0-900); Monocytes Percent Auto 5.3 % (3-14); Neutrophils Absolute Auto 11800 /uL (1500-7000); Neutrophils Percent Auto 82.3 % (50-75); Platelet Count 254 X10^3/uL (150-400); Red Blood Cell Count 3.87 X10^6/uL (4.0-5.2); Red Cell Distribution Width 13.9 % (11.6-14.8); White Blood Cell Count 14.3 X10^3/uL (4.5-11.0)
[2020-06-06] MEDS: DEXTROSE 5%-LACTATED RINGERS 1,000 ML 125 ML IV (08:10)
[2020-06-06] MEDS: PRENATAL VIT,CALC/IRON/FOLIC 1 TABLET 1 TAB PO (09:07)
[2020-06-06] MEDS: DOCUSATE 250 MG CAPSULE PO (09:07)
[2020-06-06] MEDS: LANOLIN OINT 7 GM 1 APPLIC TOP (09:29)
[2020-06-06] MEDS: OXYCODONE/ACETAMINOPHEN 5/325 TABLET 1 TAB PO ×3 (09:30→19:38)
--- NOTE | 2020-06-06 10:47 | PM.PN.1 ---
Subjective Subjective Date Patient Seen: 06/06/20 Time Patient Seen: 10:47 Interval history: Pain moderate this morning. Mostly on the left side. Bleeding continues but minimal. No nausea no vomiting working on . Otherwise feeling well. Exam Vital Signs (past 8 hours): Oxygen Delivery Method Room Air Narrative Exam Narrative: Alert female lying in bed no acute distress. Moderate pain on uterine palpation but no rebound or guarding. Incision is clean and dry. Extremities unremarkable. Objective Labs Result Diagrams: 06/06/20 06:26 Labs: Laboratory Results - last 24 hr 06/06/20 06:26 WBC 14.3 H D RBC 3.87 L Hgb 10.4 L Hct 32.2 L MCV 83.4 MCH 27.0 MCHC 32.4 RDW 13.9 Plt Count 254 Neut % (Auto) 82.3 H Lymph % (Auto) 11.1 L Lawrence % (Auto) 5.3 Eos % (Auto) 0.4 L Baso % (Auto) 0.9 Neut # (Auto) 83297 H Lymph # (Auto) 1600 Lawrence # (Auto) 800 Eos # (Auto) 100 Baso # (Auto) 100 PFSH Medical History (Updated 08/29/19 @ 17:17 by Perla Zarate PA-C) Patient denies medical problems Social History Smoking Status: Never smoker Assessment & Plan Assessment & Plan narrative: Postop day 1. Doing well. Routine Education. Questions answered. Routine care. Goal to get her up move around get Bianchi out today. We discussed this with her. She understands. Follow-up a.m..
[2020-06-06 13:15] VITALS: TEMP 37.2
[2020-06-06] MEDS: IBUPROFEN 600 MG TABLET PO (19:38)
[2020-06-06] MEDS: OXYCODONE/ACETAMINOPHEN 5/325 TABLET 2 TAB PO (23:33)
[2020-06-07] MEDS: IBUPROFEN 600 MG TABLET PO ×3 (01:37→17:14)
[2020-06-07] MEDS: OXYCODONE/ACETAMINOPHEN 5/325 TABLET 2 TAB PO (03:36)
[2020-06-07] MEDS: PRENATAL VIT,CALC/IRON/FOLIC 1 TABLET 1 TAB PO (08:15)
[2020-06-07] MEDS: DOCUSATE 250 MG CAPSULE PO (08:15)
[2020-06-07] MEDS: OXYCODONE/ACETAMINOPHEN 5/325 TABLET 1 TAB PO ×3 (08:16→17:13)
--- NOTE | 2020-06-07 11:37 | PM.DS.NB.1 ---
History of Present Illness History of Present Illness Date Patient Seen: 06/07/20 Time Patient Seen: 11:37 Date of Onset of Symptoms: 06/03/20 Chief complaint: NST Narrative: See history and physical dictated by Dr. Brown Discharge Providers Provider Date of admission: 06/04/20 09:17 Discharge Date: 06/07/20 Primary care physician: Rahel Rowell MD Consults: 06/05/20 23:24 Consult to [employer] Supervisor Routine Comment: Discharge provider: Curtis Bender MD Summary Hospital Course Discharge Diagnosis: Term intrauterine delivered Hospital Course: Patient was admitted to the hospital. She was initially ruptured with AmniSure x2. She had been started on Cytotec for 24 hours with significant contractions but no significant change. She was began on Pitocin on Monday morning. She tolerated well until mid day and then had an epidural placed. Epidural was moderately effective. She had no change by 5:00 a.m. and category 2 strip. Over the course of the next 3 hours did have cervical change but she began having decreased variability and due to the fact that we will ruptured 44 hours and having decreased variability although no fevers and antibiotics had been started it was elected for operative delivery. She had a low-transverse section without complications. Day 1 she did well was up moving and had her Bianchi discontinued. Pain was well controlled with Percocet and ibuprofen. Breast-feeding seem to be going well. On day 2 she felt she could do home. She was having minimal bleeding. Pain was well controlled no fevers and otherwise doing well. She will be discharged home in stable condition Status at Discharge Cognitive/behavioral status at discharge: oriented Functional status at discharge: independent ambulation Overall status at discharge: patient is progressing back to baseline Exam - Pediatric Vital Signs Vital Signs: Vital Signs BP 125/82 06/04/20 13:20 Additional Exam Additional findings: Alert female moving around room and then lying in bed no acute distress. Incision is clean dry uterus is minimally tender better than yesterday. No erythema. Extremities without cyanosis clubbing edema. Skin is without rash Objective Labs Result Diagrams: 06/06/20 06:26 Discharge Plan Discharge Plan Patient Disposition: Home Provider Discharge Comment: We discussed concerning signs and symptoms. Increased pain. Increased bleeding. Breast care. Concerning signs and symptoms. Patient will call if any changes. Discharge orders & Medications Prescriptions: New docusate sodium 250 mg Capsule 250 mg PO DAILY Qty: 60 RF: 0 ibuprofen 600 mg Tablet 600 mg PO Q6HR PRN (Reason: Fever/Mild Pain (1-3)) Qty: 90 RF: 0 [id number]-Z-Hwqhrs Cream 1 applic topical PRN PRN (Reason: nipple pain) Qty: 56 RF: 0 oxycodone-acetaminophen 5-325 mg Tablet 1 tab PO Q4HR PRN (Reason: Pain, Moderate (4-6)) Qty: 30 RF: 0 Prenatabs Rx 29 mg iron- 1 mg Tablet 1 tab PO DAILY Qty: 30 RF: 0 Continued hydroxyzine HCl 25 mg tablet 25 mg PO TID PRN (Reason: anxiety or insomnia) Qty: 30 RF: 1 Follow up/Referrals: Curtis Bender MD [Physician] - 06/15/20 (patient will set up) Rahel Rowell MD [Primary Care Provider] - Discharge Health Status Care Plan Goals: Home Multidrug resistant organism: No MDRO Diet/Activity/Treatments Diet: Diet as Tolerated Activity: No lifting greater than 15 lb no ABS work. Skin/Wound/Dressing Care Report to your healthcare provider any signs of infection, such as:: chills, fever and increased pain Dressing: No need to change we will remove in 1 week Discharge Data Primary Care Provider: Rahel Rowell
[2020-06-07 11:57] VITALS: BP 128/77; PULSE 84; RESP 17; TEMP 36.6
[2020-06-07 17:14] VITALS: TEMP 36.6
== END 2020-06-07 18:10 | disposition home or self-care (01) | DRG 788 ==
PROVIDERS: Family Medicine; Student in an Organized Health Care Education/Training Program; Admitting Provider Family Medicine; PCP Family Medicine; Referring Provider Family Medicine; Visit Provider Family Medicine
PROC: 10D00Z1 Extraction of Products of Conception, Low, Open Approach (ICD-10-PCS; CPT 59514; principal; 2020-06-05 21:30)
DX: O42.12 Full-term premature rupture of membranes, onset of labor more than 24 hours following rupture (principal); O76 Abnormality in fetal heart rate and rhythm complicating labor and delivery; Z3A.39 39 weeks gestation of pregnancy; Z37.0 Single live birth; O75.89 Other specified complications of labor and delivery; K21.9 Gastro-esophageal reflux disease without esophagitis; Z20.822 Contact with and (suspected) exposure to COVID-19
CPT/HCPCS: 01967; 01968; 36415; 59050; 59200; 84112; 85025; 86850; 86900; 86901; 87070; 87075; 87205; 87635; G0379; J0290; J1200; J1885; J2274; J2405; J2590; J2765; J3010; J7121

== ENCOUNTER → 2020-07-15 11:08 | Outpatient (CLI) | payer OTHER, SELFPAY ==
--- NOTE | 2020-07-15 | DI.US.S_ITS ---
PROCEDURE: US PELVIC COMPLETE INDICATIONS: Abnormal uterine and vaginal bleeding TECHNIQUE: Real-time scanning was performed of the pelvic organs, with image documentation. Additional endovaginal scanning was necessary due to incomplete visualization of the adnexal and endometrial structures by transabdominal scanning. COMPARISON: None. FINDINGS: Uterus: Uterus is normal in size at 5 x 4.4 x 6 cm. The endometrium measures 5 mm in combined thickness. In this patient with this given history, scrutiny is given to retained products of conception. None can be seen. No abnormal vascularity can be seen along the endometrial stripe. Ovaries: The right ovary measures 3.2 x 3.2 x 2.9 cm. The left ovary measures 2.1 x 1.3 x 1.8 cm. The ovaries have a normal sonographic appearance. No adnexal masses are seen. Normal appearing arterial waveforms are confirmed to each ovary. Other: No pathologic free abdominal or pelvic fluid. IMPRESSION: Negative for retained products of conception. Dictated by: Ludwin Collier M.D. on 07/15/2020 at 11:57 Approved by: Ludwin Collier M.D. on 07/15/2020 at 11:58
== END ==
PROVIDERS: PCP Family Medicine; Referring Provider Family Medicine; Visit Provider Family Medicine
DX: N93.9 Abnormal uterine and vaginal bleeding, unspecified (principal)
CPT/HCPCS: 76830; 76856

== ENCOUNTER → 2022-03-29 12:21 | Outpatient (CLI) | payer BC, OTHER, SELFPAY ==
--- NOTE | 2022-03-29 12:28 | DI.RAD.S_ITS ---
PROCEDURE: XR CHEST 2V INDICATIONS: CHEST PAIN TECHNIQUE: 2 views of the chest were acquired. COMPARISON: [facility], CT, CT ABDOMEN PELVIS WITH CONTRAST, 10/27/2021, 8:42. [facility], CR, CHEST 2 VIEW, 02/19/2016, 14:44. FINDINGS: Surgical changes and devices: None. Lungs and pleura: Lungs are clear. No pleural effusions or pneumothorax. Mediastinum: Mediastinal contours are normal. Heart size is normal. Bones and chest wall: No suspicious bony abnormalities. Soft tissues appear unremarkable. IMPRESSION: No acute cardiopulmonary abnormality. Dictated by: Hai Allen M.D. on 03/29/2022 at 13:00 Approved by: Hai Allen M.D. on 03/29/2022 at 13:01
== END ==
PROVIDERS: PCP Family Medicine; Referring Provider Family Medicine; Visit Provider Family Medicine
DX: R07.9 Chest pain, unspecified (principal)
CPT/HCPCS: 71046

== ENCOUNTER → 2022-04-08 10:18 | Outpatient (CLI) | payer BC, OTHER, SELFPAY ==
--- NOTE | 2022-04-08 | DI.US.S_ITS ---
PROCEDURE: US ABDOMEN COMPLETE INDICATIONS: ABDOMINAL PAIN TECHNIQUE: Real-time scanning was performed of the abdominal and retroperitoneal organs, with image documentation. COMPARISON: [facility], US, ABDOMEN COMPLETE, 11/24/2014, 7:32. FINDINGS: Liver: Liver is normal in size and diffusely increased in echogenicity. Hepatopetal flow seen in the main portal vein. Gallbladder: The gallbladder appears normal without gallstones or gallbladder wall thickening. There is no pericholecystic fluid. Sonographic Collins sign is negative. Biliary ducts: Intrahepatic bile ducts are non-dilated. Extrahepatic bile duct caliber measures 5.5 mm. Normal is 6-7 mm or less in diameter, or 10 mm or less post-cholecystectomy. Pancreas: Visualized portions of the pancreas are sonographically normal. Spleen: Spleen is normal in size and homogeneous in echotexture. Kidneys: Kidneys are normal in size and echotexture. Right kidney measures 10.5 cm long; left kidney measures 11.8 cm long. No hydronephrosis or nephrolithiasis. No solid masses. Aorta: Visualized aorta is normal in caliber at less than 3 cm. Iliacs: Proximal common iliac arteries are normal in caliber at less than 2.5 cm. IVC: Intrahepatic inferior vena cava is patent. Miscellaneous: No free abdominal fluid. IMPRESSION: 1. Mildly increased hepatic echogenicity is seen, most commonly secondary to diffuse hepatic steatosis but other sources of hepatocellular disease cannot be excluded. Recommend clinical correlation. 2. Normal gallbladder. Approved by: Keenan Guaman M.D. on 04/08/2022 at 12:30
== END ==
PROVIDERS: PCP Family Medicine; Referring Provider Family Medicine; Visit Provider Family Medicine
DX: R10.9 Unspecified abdominal pain (principal)
CPT/HCPCS: 76700

== ENCOUNTER → 2022-12-27 12:53 | Outpatient (CLI) | payer BC, SELFPAY ==
--- NOTE | 2022-12-27 | DI.RAD.S_ITS ---
PROCEDURE: XR RIBS RT 2V INDICATIONS: Right upper quadrant pain TECHNIQUE: 2 views of the right ribs were acquired. COMPARISON: None. FINDINGS: Surgical changes and devices: None. Bones and chest wall: No fractures or dislocations. No suspicious bony lesions. Overlying soft tissues appear unremarkable. Lungs and pleura: The visualized lung appears clear. No pleural effusions or pneumothorax are visible. IMPRESSION: No displaced rib fracture. Dictated by: Ursula Montanez MD, PhD on 12/27/2022 at 13:30 Approved by: Ursula Montanez MD, PhD on 12/27/2022 at 13:31
== END ==
LOC: RAD 12:54
PROVIDERS: PCP Family Medicine; Referring Provider Family Medicine; Visit Provider Family Medicine
DX: R10.11 Right upper quadrant pain (principal)
CPT/HCPCS: 71100

== ENCOUNTER → 2023-01-04 08:59 | Outpatient (CLI) | payer BC, SELFPAY ==
--- NOTE | 2023-01-04 | DI.US.S_ITS ---
PROCEDURE: US ABDOMEN LIMITED INDICATIONS: RIGHT UPPER QUADRANT ABDOMINAL PAIN TECHNIQUE: Real-time focused scanning was performed of the abdomen, with image documentation. COMPARISON: [facility], , US ABDOMEN COMPLETE, 04/08/2022, 10:27. FINDINGS: Liver measures 14.9 cm. No focal mass. Gallbladder is unremarkable. Wall thickness measures 2 mm. Common duct measures 3.3 mm. IMPRESSION: Unremarkable exam. Dictated by: Shaina Abdi M.D. on 01/04/2023 at 14:15 Approved by: Shaina Abdi M.D. on 01/04/2023 at 14:15
== END ==
PROVIDERS: PCP Family Medicine; Referring Provider Family Medicine; Visit Provider Family Medicine
DX: R10.11 Right upper quadrant pain (principal)
CPT/HCPCS: 76705

== ENCOUNTER → 2024-09-02 12:30 | Outpatient (CLI) | payer OTHER, SELFPAY ==
--- NOTE | 2024-09-02 12:33 | DI.RAD.S_ITS ---
PROCEDURE: XR ANKLE LT MIN 3V INDICATIONS: ANKLE PAIN TECHNIQUE: 3 views of the ankle were acquired. COMPARISON: [facility], CR, XR ANKLE 3+ VIEWS LEFT, 08/12/2024, 14:32. [facility], CR, XR ANKLE 3+ VIEWS LEFT, 07/28/2024, 9:09. FINDINGS: Bones: Subtle cortical irregularity at the medial talus is less conspicuous. Possible cortical irregularity at the anterior calcaneus seen on the lateral projection. Seen only on 1 projection. No dislocations. Ankle mortise is normally aligned. No suspicious bony lesions. Soft tissues: Decreased soft tissue swelling. No tibiotalar joint effusion. Achilles tendon appears normal. IMPRESSION: Ongoing healing of the fracture at the medial talus. Questionable prior nondisplaced fracture at the anterior calcaneus. If clinically indicated CT or MRI of the ankle may be helpful for further evaluation. Dictated by: Hai Allen M.D. on 09/03/2024 at 7:08 Approved by: Hai Allen M.D. on 09/03/2024 at 7:14
== END ==
PROVIDERS: PCP Family Medicine; Referring Provider Family Medicine; Visit Provider Family Medicine
DX: S92.125D Nondisplaced fracture of body of left talus, subsequent encounter for fracture with routine healing (principal); X58.XXXD Exposure to other specified factors, subsequent encounter
CPT/HCPCS: 73610